=== PATIENT | male | born 1990 | race Two or more races ===

== ENCOUNTER 2019-01-13 01:50 | Emergency (ER) | payer MEDICAID ==
[~2019-01-13] VITALS: Ht 180.3 cm; Wt 121.0 kg
[~2019-01-13 01:50] MED LIST: ALBU05
[2019-01-13] MEDS ORDERED: KETOROLAC 60MG/2ML VIAL IM ONE (02:45)
[2019-01-13 04:16] VITALS: BP 153/63
== END 2019-01-13 04:29 | disposition home or self-care (01) ==
LOC: ER 02:50
DX: R07.89 Other chest pain (principal); R10.9 Unspecified abdominal pain; J45.909 Unspecified asthma, uncomplicated
CPT/HCPCS: 71045; 93005; 96372; 99283; J1885